=== PATIENT | female | born 1995 | race Caucasian/White ===

== ENCOUNTER 2020-08-29 18:04 | Emergency (ER) | payer OTHER ==
[~2020-08-29] VITALS: Ht 175.3 cm; Wt 64.4 kg
[2020-08-29 18:07] VITALS: BP 120/76
[2020-08-29] MEDS ORDERED: cyclobenzaprine 10mg tablet PO ONE (19:50)
[2020-08-29] MEDS ORDERED: ketorolac tromethamine 15mg/ml inj. IM ONE (19:50)
[2020-08-29] MEDS ORDERED: IBUP-1984 PO (19:53)
[2020-08-29] MEDS ORDERED: CYCL-1 PO (19:53)
== END 2020-08-29 20:27 | disposition home or self-care (01) ==
LOC: ER 18:04
DX: S16.1XXA Strain of muscle, fascia and tendon at neck level, initial encounter (principal); F17.200 Nicotine dependence, unspecified, uncomplicated; F12.90 Cannabis use, unspecified, uncomplicated; Z72.89 Other problems related to lifestyle; Z79.899 Other long term (current) drug therapy; V87.7XXA Person injured in collision between other specified motor vehicles (traffic), initial encounter; Y93.89 Activity, other specified; Y92.488 Other paved roadways as the place of occurrence of the external cause; Y99.8 Other external cause status
CPT/HCPCS: 96372; 99283; J1885